=== PATIENT | male | born 1960 | race Caucasian/White ===

== ENCOUNTER 2016-12-15 19:05 | Emergency (ER) | payer MEDICARE, MEDICAID ==
--- NOTE | 2016-12-15 19:31 | EDM.PDOC ---
ED HPI GENERAL MEDICAL PROBLEM - General Chief Complaint: Upper Extremity Injury/Pain Stated Complaint: right elbow pain Time Seen by Provider: 12/15/16 19:21 Source of Information: Reports: Patient, Other ([employer]) History Limitations: Reports: No Limitations - History of Present Illness INITIAL COMMENTS - FREE TEXT/NARRATIVE: This patient is a 56 year old male that presents to the ER. [facility] with vial gauger at bedside. He and vial gauger report patient slipped and fell in shower. Denies hitting head, loc, n, vision changes, vomiting. Patient reports having right elbow pain is only pain complaint. Brood Hatchery Manager reports she notices that patient was eating and was not using right arm to eat with and complained of right elbow pain. Onset: Today Onset Date: 12/15/16 Onset Time: 17:00 Location: Reports: Upper Extremity, Right Severity: Mild Improves with: Reports: Immobilization Worsens with: Reports: Movement Context: Reports: Trauma Associated Symptoms: Denies: Confusion, Chest Pain, Cough, cough w sputum, Diaphoresis, Fever/Chills, Headaches, Loss of Appetite, Malaise, Nausea/Vomiting , Rash, Seizure, Shortness of Breath, Syncope, Weakness - Related Data Allergies Allergy/AdvReac Type Severity Reaction Status Date / Time No Known Allergies Allergy Verified 12/15/16 19:07 Home Meds: Home Meds Aquaphor Ointment 1 applic TOP BID 12/15/16 [History] Docusate Sodium 100 mg PO BID 12/15/16 [History] Ergocalciferol (Vitamin D2) [Vitamin D2] 2,000 unit PO DAILY 12/15/16 [History] Furosemide 80 mg PO BID 12/15/16 [History] Ketorolac [Acular 0.5% Ophth Soln] 1 drop EYEBOTH BID 12/15/16 [History] L Acidophil/B Lactis/B Longum [Florajen3] 1 cap PO DAILY 12/15/16 [History] Multivitamin [Multi-Day Vitamins] 1 tab PO DAILY 12/15/16 [History] Pimecrolimus [Elidel] 1 applic TOP BID 12/15/16 [History] Polyethylene Glycol 3350 [MiraLAX] 17 gm PO DAILY PRN 12/15/16 [History] Potassium Chloride 10 meq PO DAILY 12/15/16 [History] Psyllium Husk [Metamucil] 1 tbs PO DAILY 12/15/16 [History] Sertraline HCl [Zoloft] 100 mg PO DAILY 12/15/16 [History] Simvastatin [Zocor] 20 mg PO BEDTIME 12/15/16 [History] Tolterodine Tartrate [Detrol LA] 4 mg PO BEDTIME 12/15/16 [History] Social & Family History - Tobacco Use Smoking Status *Q: Never Smoker - Recreational Drug Use Recreational Drug Use: No Review of Systems - Review of Systems Review Of Systems: See Below Constitutional: Reports: No Symptoms Eyes: Reports: No Symptoms Ears: Reports: No Symptoms Nose: Reports: No Symptoms Mouth/Throat: Reports: No Symptoms Respiratory: Reports: No Symptoms Cardiovascular: Reports: No Symptoms GI/Abdominal: Reports: No Symptoms Genitourinary: Reports: No Symptoms Musculoskeletal: Reports: Joint Pain (right elbow). Denies: Neck Pain, Shoulder Pain, Arm Pain, Back Pain, Hand Pain, Leg Pain, Foot Pain, Muscle Pain , Muscle Stiffness Skin: Reports: No Symptoms Neurological: Reports: No Symptoms Psychiatric: Reports: No Symptoms ED EXAM, GENERAL - Physical Exam Exam: See Below Exam Limited By: No Limitations General Appearance: Alert, WD/WN, No Apparent Distress Eye Exam: Bilateral Eye: Normal Fundi, Normal Inspection, PERRL Ears: Normal External Exam, Normal Canal, Hearing Grossly Normal, Normal TMs Ear Exam: Bilateral Ear: Auricle Normal, Canal Normal, TM normal Nose: Normal Inspection, Normal Mucosa, No Blood Throat/Mouth: Normal Inspection, Normal Lips, Normal Teeth, Normal Gums, Normal Oropharynx, Normal Voice, No Airway Compromise Head: Atraumatic, Normocephalic Neck: Normal Inspection, Supple, Non-Tender, Full Range of Motion Respiratory/Chest: No Respiratory Distress, Lungs Clear, Normal Breath Sounds, No Accessory Muscle Use, Chest Non-Tender Cardiovascular: Normal Peripheral Pulses, Regular Rate, Rhythm, No Edema, No Gallop, No JVD, No Murmur, No Rub Peripheral Pulses: 2+: Radial (L), Radial (R), Posterior Tibial (L), Posterior Tibial (R) GI/Abdominal: Soft, Non-Tender Extremities: No Pedal Edema, Normal Capillary Refill, Limited Range of Motion ( due to pain of right elbow. ), Other (tenderness right elbow. pulses +2, cap refill < 2 sec, sensory intact. Neurovascular intact. ) Neurological: Alert Psychiatric: Normal Affect, Normal Mood Skin Exam: Warm, Dry, Intact, Normal Color, No Rash Lymphatic: No Adenopathy Course - Vital Signs Last Recorded V/S: Last Vital Signs Temp 97.6 F 12/15/16 19:09 Pulse 99 12/15/16 19:09 Resp 20 12/15/16 19:09 BP 139/82 12/15/16 19:09 Pulse Ox 96 12/15/16 19:09 - Orders/Labs/Meds Orders: Active Orders 24 hr Category Date Time Status Elbow Min 3V Rt [CR] Stat Exams 12/15/16 19:21 Taken - Radiology Interpretation Free Text/Narrative:: Right elbow: No fx, no dislocation. Possible small joint effusion. Departure - Departure Time of Disposition: 19:48 Disposition: Home, Self-Care 01 Condition: Good Clinical Impression: Elbow joint effusion Qualifiers: Laterality: right Qualified Code(s): M25.421 - Effusion, right elbow - Discharge Information Instructions: Cast or Splint Care, [id number], Elbow Contusion, [id number] Referrals: Ruddy Greene MD [Primary Care Provider] - Forms: ED Department Discharge Additional Instructions: Followup with your primary care provider Followup with orthopedic by calling tomorrow [facility] for ortho schedule, or call [facility]. Return to the ER for worsening of condition or any emergent concerns Rest Ice Elevate in sling Tylenol or Motrin for pain - My Orders Last 24 Hours: My Active Orders 12/15/16 19:21 Elbow Min 3V Rt [CR] Stat - Assessment/Plan Last 24 Hours: My Active Orders 12/15/16 19:21 Elbow Min 3V Rt [CR] Stat Plan: PLEASE SEE RN NOTE FOR PFSH.
== END 2016-12-15 19:55 | disposition home or self-care (01) ==
LOC: CC.ED 19:05
DX: M25.421 Effusion, right elbow (principal); Z79.899 Other long term (current) drug therapy
CPT/HCPCS: 73080-RT; 99283

== ENCOUNTER 2017-05-06 14:37 | Emergency (ER) | payer MEDICARE, MEDICAID ==
--- NOTE | 2017-05-06 17:31 | EDM.PDOC ---
ED HPI GENERAL MEDICAL PROBLEM - General Chief Complaint: ENT Problem Stated Complaint: "I fell" Time Seen by Provider: 05/06/17 15:07 Source of Information: Reports: Patient, Other ([address] [place] [address] Staff) History Limitations: Reports: Physical Impairment (mental retardation) - History of Present Illness INITIAL COMMENTS - FREE TEXT/NARRATIVE: Bartolome is a 57 yo male who presents to the ER via [address] [place] [address] Staff after sustaining an unwitness fall off of a stationary bike. Staff state they heard the fall and immediately went to help Bartloome. He was alert at that time. Bleeding was noted from his nose and obvious deformity which prompted them to come in to the ER. Onset: Today - Related Data Allergies Allergy/AdvReac Type Severity Reaction Status Date / Time No Known Allergies Allergy Verified 05/06/17 15:10 Home Meds: Home Meds Aquaphor Ointment 1 applic TOP BID 12/15/16 [History] Docusate Sodium 100 mg PO BID 12/15/16 [History] Ergocalciferol (Vitamin D2) [Vitamin D2] 2,000 unit PO DAILY 12/15/16 [History] Furosemide 80 mg PO BID 12/15/16 [History] Ketorolac [Acular 0.5% Ophth Soln] 1 drop EYEBOTH BID 12/15/16 [History] L Acidophil/B Lactis/B Longum [Florajen3] 1 cap PO DAILY 12/15/16 [History] Multivitamin [Multi-Day Vitamins] 1 tab PO DAILY 12/15/16 [History] Pimecrolimus [Elidel] 1 applic TOP BID 12/15/16 [History] Polyethylene Glycol 3350 [MiraLAX] 17 gm PO DAILY PRN 12/15/16 [History] Psyllium Husk [Metamucil] 1 tbs PO DAILY 12/15/16 [History] Sertraline HCl [Zoloft] 100 mg PO DAILY 12/15/16 [History] Simvastatin [Zocor] 20 mg PO BEDTIME 12/15/16 [History] Tolterodine Tartrate [Detrol LA] 4 mg PO BEDTIME 12/15/16 [History] Past Medical History Cardiovascular History: Reports: Heart Failure, High Cholesterol Gastrointestinal History: Reports: Chronic Constipation Genitourinary History: Reports: Urinary Incontinence Psychiatric History: Reports: Depression, Other (See Below) Other Psychiatric History: severe mental retardation Dermatologic History: Reports: Other (See Below) Other Dermatologic History: chronic dermatitis, eczema Social & Family History - Tobacco Use Smoking Status *Q: Never Smoker Second Hand Smoke Exposure: No - Recreational Drug Use Recreational Drug Use: No ED ROS ENT - Review of Systems Review Of Systems: See Below Constitutional: Reports: No Symptoms HEENT: Reports: Glasses, Nosebleed, Sinus Problem Respiratory: Reports: No Symptoms Cardiovascular: Reports: No Symptoms Skin: Reports: Wound (right side of nose) Neurological: Reports: No Symptoms ED EXAM, ENT - Physical Exam Exam: See Below Exam Limited By: Physical Impairment Eye Exam: Bilateral Eye: EOMI, Normal Inspection Ears: No: Canal Swelling, TM Bulging, TM Dullness, TM Blood Nose: Nasal Swelling, Nasal Ecchymosis, Septal Deformity, Active Bleeding. No: Septal Hematoma Mouth/Throat: Normal Inspection, Normal Oropharynx, Normal Teeth Head: Atraumatic, Normocephalic Neck: Normal Inspection, Supple Respiratory/Chest: No Respiratory Distress, Lungs Clear Cardiovascular: Regular Rate, Rhythm, No Murmur Neurological: Alert, CN II-XII Intact Psychiatric: Normal Affect, Normal Mood Skin: Warm, Dry, Intact Course - Vital Signs Last Recorded V/S: Last Vital Signs Temp 97.8 F 05/06/17 15:03 Pulse 122 H 05/06/17 15:03 Resp 20 05/06/17 15:03 BP 140/123 H 05/06/17 15:03 Pulse Ox 90 L 05/06/17 15:03 Repeat Vitals BP 128/62 P 84 O2 Sat 94% - Orders/Labs/Meds Orders: Active Orders 24 hr Category Date Time Status Head wo Cont [CT] Stat Exams 05/06/17 14:59 Taken Max Facial Sinus wo Cont [CT] Stat Exams 05/06/17 14:59 Taken Departure - Departure Time of Disposition: 16:50 Disposition: Home, Self-Care 01 Clinical Impression: Deviated nasal septum Nasal bone fractures Qualifiers: Encounter type: initial encounter Fracture type: closed Qualified Code(s): S02.2XXA - Fracture of nasal bones, initial encounter for closed fracture - Discharge Information Instructions: Deviated Septum, Nasal Fracture, [id number] Referrals: PCP,None [Primary Care Provider] - Forms: ED Department Discharge Additional Instructions: 1) Instructions written on sheet, see attached form 2) Appointment with Dr. Phelan at [facility] in [place] next Thursday at 945. Arrive 15 minutes early. Appointment is at [facility]. Clinic number [phone] 3) Ice 20 minutes at a time, 4-5 times a day for next couple of days 4) Refrain from forceful blowing of nose. 5) Tylenol for discomfort, as discussed 6) NPO on Thursday night up until appointment on Thursday just in case Dr. Phelan decides on doing surgery. 7) May call us if any concerns at [phone] - Problem List & Annotations (1) Deviated nasal septum SNOMED Code(s): 021105209 Code(s): J34.2 - DEVIATED NASAL SEPTUM Status: Acute (2) Nasal bone fractures SNOMED Code(s): 277576797 Code(s): S02.2XXA - FRACTURE OF NASAL BONES, INIT ENCNTR FOR CLOSED FRACTURE Status: Acute Qualifiers: Encounter type: initial encounter Fracture type: closed Qualified Code(s) : S02.2XXA - Fracture of nasal bones, initial encounter for closed fracture - Problem List Review Problem List Initiated/Reviewed/Updated: Yes - My Orders Last 24 Hours: My Active Orders 05/06/17 14:59 Head wo Cont [CT] Stat Max Facial Sinus wo Cont [CT] Stat - Assessment/Plan Last 24 Hours: My Active Orders 05/06/17 14:59 Head wo Cont [CT] Stat Max Facial Sinus wo Cont [CT] Stat Plan: Consulted with Dr. Phelan, ENT, at [facility] in [place]. Discussed nasal reduction vs having Bartolome follow up in his clinic next week. Dr. Phelan recommended refrain from reduction and having him see him on Thursday morning in clinic. Advised Bartolome to be NPO after midnight on Thursday for possibility of going to the OR for reduction on Thursday. Recommended applying ice as needed for swelling. Discharge instructions given.
== END 2017-05-06 16:50 | disposition home or self-care (01) ==
LOC: CC.ED 14:37
DX: S02.2XXA Fracture of nasal bones, initial encounter for closed fracture (principal); J34.2 Deviated nasal septum; E78.00 Pure hypercholesterolemia, unspecified; I50.9 Heart failure, unspecified; F32.9 Major depressive disorder, single episode, unspecified; Z79.899 Other long term (current) drug therapy; W17.89XA Other fall from one level to another, initial encounter
CPT/HCPCS: 70450; 70486; 99284

== ENCOUNTER → 2023-02-06 | Day surgery (SDC) | payer MEDICARE, MEDICAID ==
[~2023-02-06] MED LIST: Flumazenil 0.1 MG/ML 10 ML MDV ONE; Ketamine 200 MG/20 ML MDV ONE; Lactated Ringers 1,000 ML IV SCH; Midazolam 1 MG/ML 2 ML SDV ONE; Propofol 200 MG/20 ML SDV ONE; fentaNYL 50 MCG/ML SDV ONE
== END ==
LOC: CC.SDS 10:13
PROVIDERS: ATTEND Family Medicine
DX: Z12.11 Encounter for screening for malignant neoplasm of colon (principal); D12.3 Benign neoplasm of transverse colon; D12.5 Benign neoplasm of sigmoid colon; I10 Essential (primary) hypertension; E78.00 Pure hypercholesterolemia, unspecified; M81.0 Age-related osteoporosis without current pathological fracture; F32.A Depression, unspecified; Z79.899 Other long term (current) drug therapy
CPT/HCPCS: 00811; J2250; J2704; J3010; J3490; J7120